=== PATIENT | male | born 1985 | race Hispanic/Latino ===

== ENCOUNTER 2025-04-30 01:10 | Emergency (ER) | payer OTHER, SELFPAY ==
[2025-04-30] MEDS ORDERED: ONDANSETRON 4 MG/2 ML VIAL ONE (02:09)
[2025-04-30] MEDS ORDERED: MORPHINE 4 MG/ML SYR ONE ×2 (02:10→06:13)
[2025-04-30] MEDS ORDERED: PANTOPRAZOLE 40 MG INJ ONE (02:10)
[2025-04-30] MEDS ORDERED: NA CHLORIDE 0.9% 2,000 ML ONE (02:11)
[2025-04-30] MEDS ORDERED: FAMOTIDINE 20 MG/2 ML VIAL IV ONE (02:11)
[2025-04-30 02:12] LABS: Absolute Lymphocytes (CBC) 1.4 K/uL (0.7-4.9); Hematocrit 46.7 % (39.6-49.0); Hemoglobin 16.1 g/dL (13.6-17.9); MCH 31.4 pg (27.0-35.0); MCHC 34.5 g/dL (32.0-36.0); MCV 91.1 fL (80-100); MPV 7.9 fL (7.6-11.3); Nucleated RBC Absolute Count 0.0 (0-0); Nucleated Red Blood Cells % 0.0 % (0-0); RBC Red Blood Cell Count 5.12 M/uL (4.33-5.43); White Blood Count 19.40 thou/uL (4.3-10.9)
[2025-04-30 02:32] LABS: ALT/SGPT 25 U/L (16-61); AST/SGOT 18 U/L (15-37); Albumin 3.8 g/dL (3.4-5.0); Albumin/Globulin Ratio 0.9 (1.1-1.8); Alkaline Phosphatase 99 U/L (45-117); Anion Gap 9.7 mEq/L (5.0-15.0); BUN Blood Urea Nitrogen 8 mg/dL (7-18); Globulin 4.4 g/dL (2.3-3.5); Glucose Level 184 mg/dL (74-106); Potassium 3.7 mEq/L (3.5-5.1)
[2025-04-30 02:33] LABS: Lipase > 5000 U/L (13-75)
--- NOTE | 2025-04-30 05:25 | RAD REPORT ---
INDICATION: ABD PAIN COMPARISON: CT abdomen pelvis April 30, 2025 FINDINGS: Real-time grayscale and color Doppler ultrasound of the right upper quadrant was performed. GALLBLADDER: Contracted without gallstones, wall thickening, or pericholecystic fluid. Ultrasound alec hnician notes a negative Hawkins's sign. BILE DUCTS: Common bile duct not well seen. ADDITIONAL FINDINGS: None. IMPRESSION: Contracted gallbladder without findings of cholecystitis. Electronically signed by: Greg Parada DO 04/30/2025 05:16 AM CDT NR Due to temporary technical issues with the PACS/[employer] reporting system, reports are being nataliia d by the in-house radiologist without review as a courtesy to ensure prompt reporting the interpreting radiologist is fully responsible for the content of the report. Transcribed Date/Time: 04/30/2025 5:25 AM
--- NOTE | 2025-04-30 05:30 | RAD REPORT ---
EXAM: CT Abdomen and Pelvis With Intravenous Contrast FACILITY: [facility] CLINICAL HISTORY: 40 years, Male; ABD PAIN TECHNIQUE: Axial computed tomography images of the abdomen and pelvis with intravenous contrast. Sagittal an d coronal reformatted images were created and reviewed. This CT exam was performed using one or more of the following dose reduction techniques: automated exposure control, adjustment of the mA a nd/or kV according to patient size, and/or use of iterative reconstruction technique. COMPARISON: No relevant prior studies available. FINDINGS: Lung bases: Unremarkable. No mass. No consolidation. ABDOMEN: Liver: Unremarkable. No mass. Gallbladder and bile ducts: Mild enhancement of the common bile duct wall. Calcifications along the distal ampulla. Pancreas: Peripancreatic fat stranding and fluid. No ductal dilation. Spleen: Unremarkable. No splenomegaly. Adrenals: Unremarkable. No mass. Kidneys and ureters: Unremarkable. No solid mass. No hydronephrosis. Stomach and bowel: Mild duodenal wall enhancement likely secondary to adjacent pancreatitis. No obs truction. PELVIS: Appendix: No findings to suggest acute appendicitis. Bladder: Unremarkable. No mass. Reproductive: Unremarkable as visualized. ABDOMEN and PELVIS: Intraperitoneal space: Unremarkable. No free air. No significant fluid collection. Bones/joints: No acute fracture. No dislocation. Soft tissues: Unremarkable. Vasculature: Unremarkable. No abdominal aortic aneurysm. Lymph nodes: Unremarkable. No enlarged lymph nodes. IMPRESSION: 1. Peripancreatic fat stranding and fluid. Findings consistent with acute pancreatitis. 2. Mild enhancement of the common bile duct wall. Calcifications along the distal ampulla. Findings may represent choledocholithiasis. Electronically signed by: Mauricio Rodney MD 04/30/2025 03:20 AM [facility] Due to temporary technical issues with the PACS/[employer] reporting system, reports are being nataliia d by the in-house radiologist without review as a courtesy to ensure prompt reporting the interpreting radiologist is fully responsible for the content of the report. Transcribed Date/Time: 04/30/2025 5:29 AM
[2025-04-30] MEDS ORDERED: METOCLOPRAMIDE 10 MG/2mL INJ ONE (06:12)
[2025-04-30] MEDS ORDERED: CEFAZOLIN SODIUM 2 GM/VIAL ONE (06:13)
[2025-04-30] MEDS ORDERED: NA CHLORIDE 0.9% 100 ML ONE (06:13)
[2025-04-30] MEDS ORDERED: CEFEPIME 2 GM VIAL ONE (06:15)
--- NOTE | 2025-04-30 06:22 | EDPHYS ---
Physician Documentation [facility] Name: Patrice Villeda Age: 40 yrs Sex: Male : 1985 Arrival Date: 04/30/2025 Time: 01:10 Bed 20 Private MD: ED Physician Irwin Stern HPI: 04/30 01:36 This 40 yrs old Male presents to ER via Unassigned with complaints of sp4 Abdominal Pain, Abdominal Cramping, Nausea/Vomiting. 06:16 40-year-old male presents with moderate to severe onset diffuse periumbilical and upper sp4 abdominal pain associated with vomiting. Patient reports drinking a sixpack every evening.. Reported vomiting just prior to arrival. Historical: - Allergies: 01:47 Benadryl; kl - Home Meds: 01:47 None [Active]; kl - PMHx: 01:47 None; kl - PSHx: 01:47 None; kl - Immunization history:: Adult Immunizations not immunized. - Infectious Disease History:: Denies. - Social history:: Smoking status: Reported history of juuling and/or vaping. - Family history:: not pertinent. ROS: 06:17 Constitutional: Negative for fever, chills, and weight loss, positive for abdominal sp4 pain nausea and vomiting. 06:17 All other systems are negative, Exam: 06:17 Constitutional: This is a well developed, well nourished patient who is awake, alert, sp4 and in no acute distress. Head/Face: Normocephalic, atraumatic. Eyes: Pupils equal round and reactive to light, extra-ocular motions intact. Lids and lashes normal. Conjunctiva and sclera are not injected. Cornea within normal limits. Periorbital areas with no swelling, redness, or edema. ENT: Nares patent. No nasal discharge, no septal abnormalities noted. Tympanic membranes are normal and external auditory canals are clear. Oropharynx with no redness, swelling, or masses, exudates, or evidence of obstruction, uvula midline. Mucous membranes moist. Neck: Trachea midline, no thyromegaly or masses palpated, and no cervical lymphadenopathy. Supple, full range of motion without nuchal rigidity, or vertebral point tenderness. Chest/axilla: Normal chest wall appearance and motion. Nontender with no deformity. No lesions are appreciated. Cardiovascular: Regular rate and rhythm with a normal S1 and S2. No gallops, murmurs, or rubs. No pulse deficits. Respiratory: Lungs have equal breath sounds bilaterally, clear to auscultation and percussion. No rales, rhonchi or wheezes noted. No increased work of breathing, no retractions or nasal flaring. Abdomen/GI: Soft, with normal bowel sounds. No distension or tympany. Positive diffuse abdominal tenderness associated with moderate rebound tenderness Back: No spinal tenderness. No costovertebral tenderness. Skin: Warm, dry with normal turgor. Normal color with no rashes, no lesions, and no evidence of cellulitis. MS/ Extremity: Pulses equal, no cyanosis. Neurovascular intact. Full, normal range of motion. Neuro: Awake and alert, GCS 15, oriented to person, place, time, and situation. Cranial nerves II-XII grossly intact. Motor strength 5/5 in all extremities. Sensory grossly intact. Psych: Awake, alert, with orientation to person, place and time. Behavior, mood, and affect are within normal limits Vital Signs: 01:45 BP 112 / 96; Pulse 72; Resp 18; Pulse Ox 100% ; Weight 58.97 kg; Height 5 ft. 9 in. ; kl Pain 8/10; 05:30 BP 132 / 82; Pulse 74; Resp 18 S; Pulse Ox 98% on R/A; ha1 06:30 BP 138 / 82; Pulse 71; Resp 16 S; Pulse Ox 98% on R/A; ha1 07:35 BP 129 / 78; Pulse 85; Resp 16; Temp 99(O); Pulse Ox 98% on R/A; db 08:11 BP 141 / 82; Pulse 55; Resp 16; Pulse Ox 96% on R/A; db 01:45 Body Mass Index 19.20 (58.97 kg, 175.26 cm) kl 01:45 Pain Scale: Adult kl [place] Coma Score: 06:17 Eye Response: spontaneous(4). Motor Response: obeys commands(6). Verbal Response: sp4 oriented(5). Total: 15. MDM: 01:37 Medical Screening Exam initiated sp4 04:15 ED course: EXAM: CTAbdomen and Pelvis With Intravenous Contrast FACILITY: [facility] CLINICAL HISTORY: 40 years, Male; ABD PAIN TECHNIQUE: Axial computed tomography images of the abdomen and pelvis with intravenous contrast. Sagittal and coronal reformatted images were created and reviewed. This CT exam was performed using one or more of the following dose reduction techniques: automated exposure control, adjustment of the mA and/or kV according to patient size, and/or use of iterative reconstruction technique. COMPARISON: No relevant prior studies available. FINDINGS: Lung bases: Unremarkable. No mass. No consolidation. ABDOMEN: Liver: Unremarkable. No mass. Gallbladder and bile ducts: Mild enhancement of the common bile duct wall. Calcifications along the distal ampulla. Pancreas: Peripancreatic fat stranding and fluid. No ductal dilation. Spleen: Unremarkable. No splenomegaly. Adrenals: Unremarkable. No mass. Kidneys and ureters: Unremarkable. No solid mass. No hydronephrosis. Stomach and bowel: Mild duodenal wall enhancement likely secondary to adjacent pancreatitis. No obstruction. PELVIS: Appendix: No findings to suggest acute appendicitis. Bladder: Unremarkable. No mass. Reproductive: Unremarkable as visualized. ABDOMEN and PELVIS: Intraperitoneal space: Unremarkable. No free air. No significant fluid collection. Bones/joints: No acute fracture. No dislocation. Soft tissues: Unremarkable. Vasculature: Unremarkable. No abdominal aortic aneurysm. Lymph nodes: Unremarkable. No enlarged lymph nodes. IMPRESSION: 1. Peripancreatic fat stranding and fluid. Findings consistent with acute pancreatitis. 2. Mild enhancement of the common bile duct wall. Calcifications along the distal ampulla. Findings may represent choledocholithiasis. Electronically signed by: Mauricio Rodney MD 04/30/2025 03:20 AM. 06:18 Differential diagnosis: STD, Positive for pancreatitis, differential includes bowel sp4 obstruction, enteritis, viral gastroenteritis, colitis. Data reviewed: vital signs, nurses notes. Consideration of Admission/Observation Escalation of care including admission/observation considered. Management of patient was discussed with the following: [employer] Reporter: [place] [facility]ist.. ED course: INDICATION: ABD PAIN COMPARISON: CT abdomen pelvis April 30, 2025 FINDINGS: Real-time grayscale and color Doppler ultrasound of the right upper quadrant was performed. GALLBLADDER: Contracted without gallstones, wall thickening, or pericholecystic fluid. chemical treatment plant technician notes a negative Hawkins's sign. BILE DUCTS: Common bile duct not well seen. ADDITIONAL FINDINGS: None. IMPRESSION: Contracted gallbladder without findings of cholecystitis. . ED course: Patient was discussed with admitting services here have determined individual in consultation and patient warrants transfer for MRCP and possible ERCP. Patient has CT findings of common bile duct enhancement with calcifications in distal ampulla possible choledocholithiasis. Although LFTs are normal. Patient warrants transfer for MRCP. 04/30 01:37 Order name: CBC with Diff; Complete Time: 04:13 sp4 04/30 01:37 Order name: CMP; Complete Time: 04:13 sp4 04/30 01:37 Order name: Lipase; Complete Time: 04:13 sp4 04/30 04:13 Order name: Blood Culture Adult (2) sp4 04/30 04:14 Order name: Lactate w/ 2H reflex if indic. sp4 04/30 04:14 Order name: PT-INR; Complete Time: 06:37 sp4 04/30 04:14 Order name: CK sp4 04/30 04:14 Order name: Alcohol Level sp4 04/30 01:37 Order name: CT Abd/Pelvis - IV Contrast Only sp4 04/30 04:16 Order name: US Abdomen Limited sp4 04/30 01:37 Order name: IV Saline Lock; Complete Time: 02:07 sp4 04/30 01:37 Order name: Labs collected and sent; Complete Time: 02:07 sp4 04/30 04:14 Order name: NPO; Complete Time: 04:18 sp4 Administered Medications: 02:27 Drug: Pantoprazole IVP 40 mg IVP once Route: IVP; Site: left antecubital; rg5 03:00 Follow up: Response: No adverse reaction; Marked relief of symptoms ha1 02:28 Drug: Famotidine IVP 20 mg IVP once; dilute with 10 mL 0.9% NaCl; give over 2 minutes rg5 Route: IVP; Site: left antecubital; 03:00 Follow up: Response: No adverse reaction; Marked relief of symptoms; Nausea is decreasedha1 02:28 Drug: Ondansetron IVP 8 mg IVP once; over 2 minutes Route: IVP; Site: left antecubital; rg5 03:00 Follow up: Response: No adverse reaction; Marked relief of symptoms; Nausea is decreasedha1 02:28 Drug: NS 0.9% IV 1000 ml IV at 1 bolus Per protocol; to be given as a bolus over 60 rg5 minutes Route: IV; Rate: 1 bolus; Site: left antecubital; 05:00 Follow up: Response: No adverse reaction; IV Status: Completed infusion ha1 02:28 Drug: morphine IVP or IV 4 mg IVP once over 4 mins Route: IVP; Infused Over: 4 mins; rg5 Site: left antecubital; 03:00 Follow up: Response: No adverse reaction; Marked relief of symptoms; Pain is decreased; ha1 RASS: Alert and Calm (0) 02:28 Drug: Droperidol IVP 5 mg IVP once Route: IVP; Site: left antecubital; rg5 03:00 Follow up: Response: No adverse reaction; Pain is decreased ha1 04:19 Drug: NS 0.9% IV 1000 ml IV at 125 ml/hr once; to be given at 125 ml / hour Route: IV; ha1 Rate: 125 ml/hr; Site: right antecubital; 06:37 Follow up: Response: No adverse reaction; IV Status: Infusion continued ha1 06:28 Drug: morphine IVP or IV 4 mg IVP once over 4 mins Route: IVP; Infused Over: 4 mins; ha1 Site: right wrist; 08:13 Follow up: Response: No adverse reaction; Pain is decreased db 06:31 Drug: metoCLOPramide IVP 10 mg IVP once; over 1 to 2 minutes Route: IVP; Site: right ha1 wrist; 08:13 Follow up: Response: No adverse reaction; Nausea is decreased db 06:32 Drug: Cefepime IVPB 2 grams IVPB at 200 ml/hr once over 30 mins; (mix in NS 100 mL) ha1 Route: IVPB; Rate: 200 ml/hr; Infused Over: 30 mins; Site: right wrist; 07:05 Follow up: Response: No adverse reaction; IV Status: Completed infusion; IV Intake: db 100ml Disposition: 06:36 Chart complete. sp4 Disposition Summary: 04/30/25 06:22 Transfer Ordered Notes: Transfer Location: [facility] sp4 Reason: Higher level of care sp4 Condition: Stable sp4 Problem: new sp4 Symptoms: have improved sp4 Accepting Physician: [facility]'s hospitalist(04/30/25 08:13) db Diagnosis - Acute alcoholic pancreatitis, calcifications distal common bile duct, possible sp4 choledocholelithiasis Forms: - Medication Reconciliation Form sp4 - SBAR form sp4 Critical care time excluding procedures: 06:36 Critical care time: Bedside Care: 36 minutes, Consultation: 12 minutes, Family sp4 Intervention: 12 minutes. Total time: 60 minutes Signatures: Dispatcher [employer] EDMimi Perez RN RN kl Ayala, Heidy, RN RN ha1 Edelmira Silver RN RN db Potepalov, Sergey, MD MD sp4 Kulwant Diana RN RN rg5 Corrections: (The following items were deleted from the chart) 01:37 01:37 CBC+H.LAB.BRZ ordered. EDMS EDMS 01:37 01:37 COMPREHENSIVE METABOLIC PANEL+C.LAB.BRZ ordered. EDMS EDMS 01:37 01:37 LIPASE+C.LAB.BRZ ordered. EDMS EDMS 01:37 01:37 Abdomen Pelvis W Con+CT.RAD.BRZ ordered. EDMS EDMS 04:14 04:14 BLOOD CULTURE*+BA.LAB.BRZ ordered. EDMS EDMS 04:14 04:14 LACTATE+C.LAB.BRZ ordered. EDMS EDMS 04:14 04:14 PROTIME (+INR)+COAG.LAB.BRZ ordered. EDMS EDMS 04:14 04:14 CREATINE PHOSPHOKINASE+C.LAB.BRZ ordered. EDMS EDMS 08:13 06:22 [place] [facility]ist sp4 db
--- NOTE | 2025-04-30 06:22 | ER ---
Nurse's Notes [facility] Name: Patrice Villeda Age: 40 yrs Sex: Male : 1985 Arrival Date: 04/30/2025 Time: 01:10 Bed 20 Private MD: Diagnosis: Acute alcoholic pancreatitis, calcifications distal common bile duct, possible choledocholelithiasis Presentation: 04/30 01:45 Chief complaint: Patient states: abdominal pain began yesterday reports bloating nausea kl and and increase in pain. Coronavirus screen: Vaccine status: Patient reports being unvaccinated. Ebola Screen: Patient negative for fever greater than or equal to 101.5 degrees Fahrenheit, and additional compatible Ebola Virus Disease symptoms. Initial Sepsis Screen: Does the patient meet any 2 criteria? No. Patient's initial sepsis screen is negative. Does the patient have a suspected source of infection? No. Patient's initial sepsis screen is negative. Risk Assessment: Do you want to hurt yourself or someone else? Patient reports no desire to harm self or others. Onset of symptoms was April 29, 2025. 01:45 Method Of Arrival: Ambulatory 01:45 Acuity: NALDO 3 01:47 Note Pt reports drinks six pack of beer daily. Triage Assessment: 01:49 General: Appears uncomfortable, slender, Behavior is cooperative, anxious. Pain: Complains of pain in epigastric area Pain currently is 8 out of 10 on a pain scale. Quality of pain is described as crampy, sharp, Noted to be grimacing. GI: Reports cramping, nausea. : No signs and/or symptoms were reported regarding the genitourinary system. Historical: - Allergies: 01:47 Benadryl; kl - Home Meds: 01:47 None [Active]; kl - PMHx: 01:47 None; kl - PSHx: 01:47 None; kl - Immunization history:: Adult Immunizations not immunized. - Infectious Disease History:: Denies. - Social history:: Smoking status: Reported history of juuling and/or vaping. - Family history:: not pertinent. Screenin:34 [facility] ED Fall Risk Assessment (Adult) History of falling in the last 3 months, ha1 including since admission No falls in past 3 months (0 pts) Confusion or Disorientation No (0 pts) Intoxicated or Sedated No (0 pts) Impaired Gait No (0 pts) Mobility Assist Device Used No (0 pt) Altered Elimination No (0 pt) Score/Fall Risk Level 0 - 2 = Low Risk Oriented to surroundings, Maintained a safe environment, Educated pt \T\ family on fall prevention, incl call for assistance when getting out of bed, Hourly rounding (assess needs \T\ fall precautionary measures) done. Abuse screen: Denies threats or abuse. Denies injuries from another. Nutritional screening: No deficits noted. Tuberculosis screening: No symptoms or risk factors identified. Assessment: 03:00 General: Appears uncomfortable, Behavior is calm, cooperative. Pain: Complains of pain ha1 in abdomen Pain currently is 10 out of 10 on a pain scale. Quality of pain is described as throbbing. Neuro: Level of Consciousness is awake, alert, obeys commands, Oriented to person, place, time, situation. Cardiovascular: Capillary refill < 3 seconds Patient's skin is warm and dry. Respiratory: Airway is patent Respiratory effort is even, unlabored, Respiratory pattern is regular, symmetrical. GI: Abdomen is round non-distended, Bowel sounds present X 4 quads. Abdomen is tender to palpation X 4 quads. Reports lower abdominal pain, upper abdominal pain, nausea, vomiting. Derm: Skin is pink, warm \T\ dry. 04:55 Reassessment: Patient and/or family updated on plan of care and expected duration. Pain ha1 level reassessed. Patient is alert, oriented x 3, equal unlabored respirations, skin warm/dry/pink. Patient states feeling better. Patient states symptoms have improved. 06:30 Reassessment: Patient and/or family updated on plan of care and expected duration. Pain ha1 level reassessed. Patient is alert, oriented x 3, equal unlabored respirations, skin warm/dry/pink. Patient states feeling better. Patient states symptoms have improved. 07:15 Reassessment: REPORT RECEIVED FROM DYLON. PT REPORT NOT GIVEN TO RECEIVING FACILITY db DUE TO FACILITY REFUSED TO ACCEPT REPORT, SHIFT CHANGE. 07:28 Reassessment: Patient appears in no apparent distress at this time. CALLED PT REPORT TO db [facility]. 07:30 Reassessment: Patient appears in no apparent distress at this time. Patient and/or db family updated on plan of care and expected duration. Pain level reassessed. Patient is alert, oriented x 3, equal unlabored respirations, skin warm/dry/pink. General: Appears in no apparent distress. comfortable, Behavior is calm, cooperative. Neuro: Level of Consciousness is awake, alert, obeys commands, Oriented to person, place, time, situation. Respiratory: Airway is patent Respiratory effort is even, unlabored, Respiratory pattern is regular, symmetrical. 08:11 Reassessment: Patient appears in no apparent distress at this time. Patient and/or db family updated on plan of care and expected duration. Pain level reassessed. Patient is alert, oriented x 3, equal unlabored respirations, skin warm/dry/pink. EMS ARRIVAL FOR PATIENT TRANSPORT. Vital Signs: 01:45 BP 112 / 96; Pulse 72; Resp 18; Pulse Ox 100% ; Weight 58.97 kg; Height 5 ft. 9 in. ; kl Pain 8/10; 05:30 BP 132 / 82; Pulse 74; Resp 18 S; Pulse Ox 98% on R/A; ha1 06:30 BP 138 / 82; Pulse 71; Resp 16 S; Pulse Ox 98% on R/A; ha1 07:35 BP 129 / 78; Pulse 85; Resp 16; Temp 99(O); Pulse Ox 98% on R/A; db 08:11 BP 141 / 82; Pulse 55; Resp 16; Pulse Ox 96% on R/A; db 01:45 Body Mass Index 19.20 (58.97 kg, 175.26 cm) kl 01:45 Pain Scale: Adult [place] Coma Score: 06:17 Eye Response: spontaneous(4). Motor Response: obeys commands(6). Verbal Response: sp4 oriented(5). Total: 15. ED Course: 01:14 Patient arrived in ED. gm2 01:36 Irwin Stern MD is Attending Physician. sp4 01:47 Triage completed. kl 02:00 Inserted saline lock: 20 gauge in left antecubital area, using aseptic technique. Blood ha1 collected. Flushed with 10 mL NS. 02:07 CBC with Diff Sent. ha1 02:07 CMP Sent. ha1 02:07 Lipase Sent. ha1 03:00 Patient has correct armband on for positive identification. Bed in low position. Call ha1 light in reach. Side rails up X 1. Adult w/ patient. 03:01 CT Abd/Pelvis - IV Contrast Only In Process Unspecified. EDMS 04:54 US Abdomen Limited In Process Unspecified. EDMS 05:10 IV discontinued, intact, bleeding controlled, No redness/swelling at site. Pressure ha1 dressing applied. 05:30 Inserted saline lock: 20 gauge in right wrist, using aseptic technique. Blood ha1 collected. Flushed with 10 mL NS. 06:16 initiated a transfer with the [facility]. eb 06:30 Dylon Osborne, TRACI is Primary Nurse. [facility] 06:32 connected the hospitalist print production manager for [facility] with Dr. Stern for patient eb transfer consultation. 06:38 administrative approval given by Flaca Batista Rn/ patient has been accepted to [facility] bed 2414/ Dr. Rogers Desouza has accepted the patient in transfer/ report to be called to [phone]. 07:32 No provider procedures requiring assistance completed. db 08:11 Patient transferred, IV remains in place. db 08:11 Provided Education on: TRANSFER. Pulse ox on. NIBP on. Warm blanket given. Pillow given.db Administered Medications: 02:27 Drug: Pantoprazole IVP 40 mg IVP once Route: IVP; Site: left antecubital; rg5 03:00 Follow up: Response: No adverse reaction; Marked relief of symptoms ha1 02:28 Drug: Famotidine IVP 20 mg IVP once; dilute with 10 mL 0.9% NaCl; give over 2 minutes rg5 Route: IVP; Site: left antecubital; 03:00 Follow up: Response: No adverse reaction; Marked relief of symptoms; Nausea is decreasedha1 02:28 Drug: Ondansetron IVP 8 mg IVP once; over 2 minutes Route: IVP; Site: left antecubital; rg5 03:00 Follow up: Response: No adverse reaction; Marked relief of symptoms; Nausea is decreasedha1 02:28 Drug: NS 0.9% IV 1000 ml IV at 1 bolus Per protocol; to be given as a bolus over 60 rg5 minutes Route: IV; Rate: 1 bolus; Site: left antecubital; 05:00 Follow up: Response: No adverse reaction; IV Status: Completed infusion ha1 02:28 Drug: morphine IVP or IV 4 mg IVP once over 4 mins Route: IVP; Infused Over: 4 mins; rg5 Site: left antecubital; 03:00 Follow up: Response: No adverse reaction; Marked relief of symptoms; Pain is decreased; ha1 RASS: Alert and Calm (0) 02:28 Drug: Droperidol IVP 5 mg IVP once Route: IVP; Site: left antecubital; rg5 03:00 Follow up: Response: No adverse reaction; Pain is decreased ha1 04:19 Drug: NS 0.9% IV 1000 ml IV at 125 ml/hr once; to be given at 125 ml / hour Route: IV; ha1 Rate: 125 ml/hr; Site: right antecubital; 06:37 Follow up: Response: No adverse reaction; IV Status: Infusion continued ha1 06:28 Drug: morphine IVP or IV 4 mg IVP once over 4 mins Route: IVP; Infused Over: 4 mins; ha1 Site: right wrist; 08:13 Follow up: Response: No adverse reaction; Pain is decreased db 06:31 Drug: metoCLOPramide IVP 10 mg IVP once; over 1 to 2 minutes Route: IVP; Site: right ha1 wrist; 08:13 Follow up: Response: No adverse reaction; Nausea is decreased db 06:32 Drug: Cefepime IVPB 2 grams IVPB at 200 ml/hr once over 30 mins; (mix in NS 100 mL) ha1 Route: IVPB; Rate: 200 ml/hr; Infused Over: 30 mins; Site: right wrist; 07:05 Follow up: Response: No adverse reaction; IV Status: Completed infusion; IV Intake: db 100ml Medication: 06:39 VIS not applicable for this client. ha1 Intake: 07:05 IV: 100ml; Total: 100ml. db Outcome: 06:22 ER care complete, transfer ordered by MD. barton 08:11 Transferred by ground EMS to [facility], Transfer form completed. db X-rays sent w/ patient. 08:11 Condition: stable 08:11 Instructed on the need for transfer, 08:13 Patient left the ED. db Signatures: [facility], MimiTRACI grey RN, Elizabeth eb Ayala, Heidy, RN RN ha1 Edelmira Silver RN RN db Irwin Stern MD MD sp4 Inocencia Arechiga 2 Kulwant Diana RN RN rg5 Dylon Osborne RN RN ss12 Corrections: (The following items were deleted from the chart) 07:35 07:05 Temp 98F; db db 07:37 07:35 Temp 99F Oral; db db 07:37 07:15 Reassessment: Patient appears in no apparent distress at this time. CALLED PT db REPORT TO [facility]
[2025-04-30 06:36] LABS: PT Prothrombin Time 12.5 SECONDS (10-13.0); Protime INR 1.11
[2025-04-30 08:59] VITALS: TEMP 99
[2025-04-30 09:01] VITALS: BP 141/82; O2SAT 96
== END 2025-04-30 08:13 | disposition short-term general hospital (02) ==
LOC: ER 01:10
DX: K85.20 Alcohol induced acute pancreatitis without necrosis or infection (principal); K80.50 Calculus of bile duct without cholangitis or cholecystitis without obstruction
CPT/HCPCS: 87040 ×2; 85025; 36415; 82550; 85610; 83605; 83690; 80053; 74177; 76705; 99285; 82077; Q9967; J2765; J2470; J0692; J2405; J1790; J7030